=== PATIENT | male | born 1955 ===

== ENCOUNTER 2019-12-26 09:56 | Emergency (ER) | payer MEDICARE, OTHER ==
[2019-12-27 14:13] LABS: SARS-CoV-2 MS2 Positive; SARS-CoV-2 N Gene Positive; SARS-CoV-2 S Gene Positive; SARS-CoV-2 orf1ab Positive
== END 2019-12-26 10:31 | disposition home or self-care (01) ==
LOC: ERS 09:56
DX: U07.1 COVID-19 (principal)
CPT/HCPCS: 99283; U0003; 87635